=== PATIENT | male | born 1935 | race Caucasian/White ===

== ENCOUNTER → 2018-11-25 | Outpatient (CLI) | payer MEDICARE, OTHER ==
[~2018-11-25] MED LIST: LISHYD1012 PO; OXYACE5T PO
== END | disposition home or self-care (01) ==
LOC: LAB SHORT 08:20 → PLD 08:20
DX: L57.0 Actinic keratosis (principal)
CPT/HCPCS: 88305

== ENCOUNTER → 2021-08-22 | Outpatient (CLI) | payer MEDICARE, OTHER ==
[2021-08-23 07:11] LABS: A/G RATIO 1.5 (1.2-2.2); BILIRUBIN, TOTAL 0.4 mg/dL (0.0-1.2); CALCIUM, SERUM 9.3 mg/dL (8.6-10.2); CREATININE, SERUM 1.09 mg/dL (0.76-1.27); GLOBULIN, TOTAL 3.1 g/dL (1.5-4.5); HEMOGLOBIN A1C 6.7 % (4.8-5.6); POTASSIUM, SERUM 4.4 mmol/L (3.5-5.2); PROTEIN, TOTAL, SERUM 7.6 g/dL (6.0-8.5)
== END ==
LOC: LAB SHORT 12:01
PROVIDERS: Family Medicine
DX: E11.9 Type 2 diabetes mellitus without complications (principal)
CPT/HCPCS: 80053; 83036

== ENCOUNTER → 2022-07-26 | Outpatient (CLI) | payer MEDICARE, OTHER ==
[2022-07-26 13:21] LABS: International Normalized Ratio 3.25; Prothrombin Time Results 31.6 Sec (9.7-11.5)
== END ==
LOC: LAB SHORT 10:20
PROVIDERS: Family Medicine
DX: Z51.81 Encounter for therapeutic drug level monitoring (principal); I26.99 Other pulmonary embolism without acute cor pulmonale
CPT/HCPCS: 85610

== ENCOUNTER → 2022-08-29 | Outpatient (CLI) | payer MEDICARE, OTHER ==
[2022-08-29 19:14] LABS: International Normalized Ratio 1.74; Prothrombin Time Results 17.6 Sec (9.7-11.5)
== END | disposition home or self-care (01) ==
LOC: LAB SHORT 14:00
PROVIDERS: Family Medicine
DX: I26.99 Other pulmonary embolism without acute cor pulmonale (principal)
CPT/HCPCS: 85610

== ENCOUNTER → 2022-10-01 | Outpatient (CLI) | payer MEDICARE, OTHER ==
[~2022-10-01] MED LIST changes: +GLIMEPIRIDE4 MG PO; +JANTOVEN2.5 M2 PO; +Lisinopril-Hct1 EAC4 PO; +METFORMIN HCL500 M2 PO
== END | disposition home or self-care (01) ==
LOC: LAB SHORT 16:30 → LAB 16:30
DX: N39.0 Urinary tract infection, site not specified (principal)
CPT/HCPCS: 87086

== ENCOUNTER 2022-10-02 10:47 | Emergency (ER) | payer MEDICARE, OTHER ==
[~2022-10-02] VITALS: Ht 172.7 cm; Wt 72.6 kg
[~2022-10-02 10:47] MED LIST changes: -GLIMEPIRIDE4 MG PO; -JANTOVEN2.5 M2 PO; -Lisinopril-Hct1 EAC4 PO; -METFORMIN HCL500 M2 PO
[2022-10-02] MEDS ORDERED: JANTOVEN2.5 M2 PO (11:20)
[2022-10-02] MEDS ORDERED: Lisinopril-Hct1 EAC4 PO (11:20)
[2022-10-02] MEDS ORDERED: GLIMEPIRIDE4 MG PO (11:20)
[2022-10-02] MEDS ORDERED: METFORMIN HCL500 M2 PO (11:21)
--- NOTE | 2022-10-02 12:28 | NUR ---
Received call from [place] [facility] RN Meredith mcneil this AM reporting Pt on his way to ER. [facility]. Pt resting on gurney upon arrival. Pt's family at bedside with ER Provider October discussing plan of care. Pt and family report wishes are to focus on comfort and be transfered to [place] on hospice services. Offered supportive visit. October will discuss case further with [facility] Provider. Spoke with ED RN Jordan Fields and relayed information. Plan for Pt to transfer to [place] on hospice services.
[2022-10-02 12:45] LABS: BASOPHILS ABSOLUTE AUTO 0.02 K/mm3 (0.00-0.23); BASOPHILS PERCENT AUTO 0 % (0-2); EOSINOPHILS PERCENT AUTO 0 % (0-6); Hematocrit 39.8 % (37.0-53.0); Hemoglobin 13.6 g/dL (13.5-17.5); IMMATURE GRAN ABSOLUTE AUTO 0.06 K/mm3 (0.00-0.10); IMMATURE GRAN PERCENT AUTO 0 % (0-1); LYMPHOCYTES ABSOLUTE AUTO 0.43 K/mm3 (0.84-5.20); LYMPHOCYTES PERCENT AUTO 3 % (21-46); MONOCYTES ABSOLUTE AUTO 0.95 K/mm3 (0.16-1.47); MONOCYTES PERCENT AUTO 7 % (4-13); Mean Corpuscular HGB 30.6 pg (26.0-34.0); Mean Corpuscular HGB Conc 34.2 g/dL (31.5-36.5); Mean Corpuscular Volume 89 fL (80-100); Mean Platelet Volume 9.1 fL (9.1-12.4); NEUTROPHILS PERCENT AUTO 90 % (41-73); Platelet Count 387 K/mm3 (150-400); RDW Coefficient Variation 13.5 % (11.7-14.2); RDW Standard Deviation 43.9 fL (35.1-46.3); Red Blood Cell Count 4.45 M/mm3 (4.30-5.90); White Blood Cell Count 13.86 K/mm3 (4.00-11.30)
[2022-10-02 13:20] LABS: Albumin/Globulin Ratio 0.8 (0.8-1.8); Bilirubin, Total 0.9 mg/dL (0.1-1.0); Bun/Creatinine Ratio 35.6 (12.0-20.0); Calcium, Blood 9.5 mg/dL (8.5-10.1); Creatinine, Blood 1.8 mg/dL (0.60-1.20); Globulin, Blood 4.8 g/dL (2.2-4.0); Potassium, Blood 4.6 mmol/L (3.5-5.5); Total Protein, Blood 8.8 g/dL (6.4-8.2)
== END 2022-10-02 15:26 | disposition other institution (70) ==
LOC: ER 10:47
PROVIDERS: Physician Assistant
DX: G23.1 Progressive supranuclear ophthalmoplegia [Steele-Richardson-Olszewski] (principal); I10 Essential (primary) hypertension; Z66 Do not resuscitate; R53.1 Weakness; W19.XXXA Unspecified fall, initial encounter; Z88.8 Allergy status to other drugs, medicaments and biological substances
CPT/HCPCS: 31720; 36415; 80053; 85025; J3010